=== PATIENT | male | born 1950 | race Caucasian/White ===

== ENCOUNTER 2021-03-31 09:17 | Emergency (ER) | payer MEDICAID ==
[~2021-03-31] VITALS: Ht 170.2 cm; Wt 69.0 kg
[2021-03-31] MEDS ORDERED: ACETAMINOPHEN 325MG TABLET PO ONE (09:45)
[2021-03-31 10:02] LABS: BASOPHILS % 0.5 % (0.0-2.0); EOSINOPHILS % 0.6 % (0.0-5.0); HEMATOCRIT. 40.1 % (42.0-52.0); HEMOGLOBIN. 13.3 g/dL (14.0-18.0); LYMPHOCYTES % 20.3 % (20.0-50.0); MEAN CORPUSCULAR HEMOGLOBIN 29.3 pg (28.0-32.0); MEAN PLATELET VOLUME 8.2 fl (7.4-10.4); MONOCYTES % 7.9 % (2.0-8.0); NEUTROPHILS % 70.7 % (40.0-76.0); PLATELET 148 x1000/uL (130-400); RED BLOOD CELL COUNT 4.56 mill/uL (4.7-6.1); RED CELL DISTRIBUTION WIDTH 14.3 % (11.6-14.6)
[2021-03-31 10:06] LABS: CHLORIDE 100 mEq/L (98-107)
[2021-03-31] MEDS ORDERED: IOHEXOL-350 100 ML BOTTLE ONE (11:30)
[2021-03-31] MEDS ORDERED: TOPUD PO (11:43)
[2021-03-31 13:30] VITALS: BP 183/54
== END 2021-03-31 13:50 | disposition home or self-care (01) ==
LOC: ER 09:17
DX: M54.9 Dorsalgia, unspecified (principal); I10 Essential (primary) hypertension; I49.9 Cardiac arrhythmia, unspecified
CPT/HCPCS: 36415; 71045; 71275; 80053; 83880; 84484; 85025; 93005; 99285; Q9967